=== PATIENT | female | born 1970 | race Caucasian/White ===

== ENCOUNTER 2021-05-26 15:10 | Emergency (ER) | payer MEDICAID, SELFPAY ==
[2021-05-26 15:11] VITALS: BP 140/90; PULSE 85; RESP 14; TEMP 36.6; O2SAT 98; BMI 19.8
--- NOTE | 2021-05-26 15:32 | EX.ED.SAOD ---
HPI History of Present Illness Chief Complaint: Overdose Informant: patient Onset/Context/Timing Onset: Today Current Severity: Gone Maximum Severity: Moderate Associated Symptoms Prehospital Treatment: Naloxone Narrative Narrative: 51-year-old female admits to history of fentanyl abuse. Reportedly snorted fentanyl today became unconscious. Was treated at the scene with Narcan that someone had. Did not wake her up squad was called and she was given Narcan twice and is now awake and alert. She denies any complaints. She denies any recent illness. Patient was in a detox outpatient program in [place] but got released from the program when she was not making her appointments. Prior similar symptoms: Yes Recent Illness/Hospitalization: No [facility] Medical History Opiate abuse, continuous Home Medications clonazepam 1 tab PO BID PRN PRN 02/21/16 [History Last Taken Unknown] naproxen [Naprosyn] 500 mg PO BID #14 tab 02/21/16 [Rx Last Taken Unknown] promethazine 25 mg PO PRN PRN 02/21/16 [History Last Taken Unknown] sumatriptan succinate [Imitrex] 100 mg PO .X1 PRN 02/21/16 [History Last Taken Unknown] Allergy/AdvReac Type Severity Reaction Status Date / Time No Known Allergies Allergy Verified 05/26/21 15:11 Social History Smoking Status: Never smoker ROS ROS ED ROS Narrative Denies recent illness. Review of Systems ROS Unobtainable: Denies due to encephalopathy Constitutional Constitutional ED: Denies fever(s) Eyes Eyes: Denies change in vision ENT ENT ED: Denies ear pain Cardiovascular Cardiovascular: Denies chest pain Respiratory/Chest Respiratory/Chest: Denies dyspnea Gastrointestinal Gastrointestinal: Denies abdominal pain Genitourinary Genitourinary ED: Denies dysuria Musculoskeletal Musculoskeletal: Denies myalgias Integumentary Denies rash Neurologic Neurologic: Denies headache(s) Psychiatric Psychiatric: Denies depression Endocrine Endocrinology: Denies polyuria Hematologic/Lymphatic Hematologic/Lymphatic: Denies easy bruising Allergic/Immunologic Allergic/Immunologic ED: Denies urticaria EXAM Physical Exam Narrative Exam Narrative: Middle-aged female no acute distress vital signs stable afebrile. HEENT exam unremarkable. Neck nontender no lymphadenopathy. Lungs clear to auscultation bilaterally. Heart regular rhythm no murmur. Rate about 80. Abdomen soft nontender normal bowel sounds no peritoneal signs. Extremities moves all four. Calves are nontender without edema. Equal symmetrical conventions reservationist strength. Dorsi plantar flexion intact. Neurologically awake and alert. Answering questions and following commands. Const Vital Signs: 05/26/21 15:11 Temperature 97.8 F Temperature Source Oral Pulse Rate 85 Respiratory Rate 14 Blood Pressure 140/90 H Blood Pressure Mean 106 Pulse Ox 98 Oxygen Delivery Method Room Air Positive well nourished and well developed; Negative for obese, cachectic, contractures or unkempt General Appearance ED: well developed and NAD; Negative for unkempt, cachectic, contractures or pallor Nutritional Appearance: Negative for cachectic or obese HEENT Reports moist mucous membranes atraumatic; Negative for trauma or tenderness Eyes PERRL and EOMs intact bilaterally General Eye ED: Negative for scleral icterus Neck no lymphadenopathy, supple and no JVD Thyroid: Negative for tender Lymph Lymphatic: no lymphadenopathy noted; Negative for lymphadenopathy Chest Wall inspection of chest normal and palpation of chest normal Resp normal respiratory effort and clear to auscultation bilaterally Auscultation: Negative for rales, rhonchi, wheezes or other Cardio regular rate, regular rhythm, S1 normal heart sound, S2 normal heart sound and no murmurs GI soft to palpation, non-tender, non-distended and no masses Inspection: Negative for abdominal distention Auscultation: Negative for hyperactive bowel sounds or hypoactive bowel sounds Palpation: Negative for tender, guarding or rigid Back/Spine no CVA tenderness General Back: Negative for CVA tenderness Cervical Spine: Negative for cervical spine tenderness Thoracic Spine / Upper Back: Negative for thoracic spinal tenderness Lumbar Spine / Lower Back: Negative for lumbar spinal tenderness Extremity General Extremety ED: Negative for edema or tenderness General Extremity: Negative for edema Neuro oriented x3 Sensorium / Orientation: alert, oriented to person, oriented to place and oriented to time; Negative for confused, lethargic or stuporous Motor Exam: strength 5/5 throughout Psych mental status grossly normal and thought process normal Appearance: Negative for unkempt Skin General Skin Exam: Negative for jaundice or pallor Lesions: no lesions Rashes: no rashes MDM MDM MDM Narrative Medical decision making narrative: 50-year-old female history of fentanyl abuse. Today accidentally overdosed and was treated with Narcan. She is currently awake and alert without complaints. She will be observed in the emergency department for half an hour and discharged. She is already sought treatment at [facility] and will follow-up with them this week. Discharge Plan Triage Chief Complaint: Overdose ED Provider: Daniel Paula Dx/Rx/DC Orders Clinical Impression: Accidental fentanyl overdose, Hx of drug abuse Instructions: ED Drug Abuse Prescriptions: No Action sumatriptan succinate [Imitrex] 100 MG tablet 100 mg PO .X1 PRN RF: 0 clonazepam 0.5 MG tablet 1 tab PO BID PRN PRN (Reason: Anxiety) RF: 0 promethazine 25 MG tablet 25 mg PO PRN PRN (Reason: Nausea) RF: 0 naproxen [Naprosyn] 500 MG tablet 500 mg PO BID Qty: 14 RF: 0 Primary Care Provider: Giovanni Little Referrals: Giovanni Little MD [Primary Care Provider] - [employer] [STAFF PHYSICIAN] - As soon as possible Activity Restrictions/Additional Instructions: Follow-up with the [facility] outpatient detox program. Disposition Disposition: Home, Self Care
[2021-05-26 15:47] VITALS: BP 111/86; PULSE 85; O2SAT 96
[2021-05-26] MEDS: Ondansetron ODT 4 MG Tablet PO (16:05)
[2021-05-26 16:20] VITALS: BP 118/64; PULSE 74; RESP 18; O2SAT 99
== END 2021-05-26 16:21 | disposition home or self-care (01) ==
LOC: ED 15:37
PROVIDERS: Emergency Provider Emergency Medicine; PCP Family Medicine Geriatric Medicine; Visit Provider Emergency Medicine
DX: T40.411A Poisoning by fentanyl or fentanyl analogs, accidental (unintentional), initial encounter (principal)
CPT/HCPCS: 99283

== ENCOUNTER 2022-11-07 17:06 | Observation (INO) | payer OTHER, MEDICAID, SELFPAY ==
[2022-11-07 17:07] VITALS: BP 121/87; PULSE 82; RESP 17; TEMP 36.2; O2SAT 100; BMI 21.4
--- NOTE | 2022-11-07 17:33 | EX.ED.DYSGE1 ---
HPI <PATSY Crawley - Last Filed: 11/07/22 19:04> History of Present Illness Chief Complaint: Substance Abuse Narrative Narrative: Patient presenting today requesting to detox from fentanyl. She last used this afternoon. She recently became established with the [facility] program who encouraged her to come here for detox. She reports that she uses around 1/4 of a gram per day for the last several years. She primarily snorts this, she has only injected it a handful of times in the past few years and denies any recent injection use. She also reports occasional meth use and last used meth last night. She has never tried to detox at a facility before. She denies any alcohol use. PMH includes asthma, OCD, and chronic migraines. PFSH <PATSY Crawley - Last Filed: 11/07/22 19:04> PFSH Medical History Anxiety Chronic hepatitis C virus infection Depression Opiate abuse, continuous Premature ovarian failure Home Medications clonazepam 0.5 mg tablet 1 tab PO BID PRN PRN Anxiety 02/21/16 [History Last Taken Unknown] naproxen 500 mg tablet (Naprosyn) 500 mg PO BID pain #14 tabs 02/21/16 [Rx Last Taken Unknown] promethazine 25 mg tablet 25 mg PO PRN PRN Nausea 02/21/16 [History Last Taken Unknown] sumatriptan succinate 100 mg tablet (Imitrex) 100 mg PO Q2H PRN migraine headache 02/21/16 [History Last Taken Unknown] furosemide 20 mg tablet 20 mg PO DAILY PRN swelling on feet 11/07/22 [History Last Taken Unknown] rizatriptan 10 mg tablet (Maxalt) 10 mg PO Q2H PRN migraine headache 11/07/22 [History Last Taken Unknown] Allergy/AdvReac Type Severity Reaction Status Date / Time No Known Allergies Allergy Verified 11/07/22 17:07 Family History (Updated 11/07/22 @ 18:[address] Lissa Schuster DO) Other COPD (chronic obstructive pulmonary disease) Cancer Diabetes Heart disease Hypertension Surgical History H/O oral surgery Hx of cholecystectomy Social History (Updated 11/07/22 @ 18:[address] Lissa Schuster DO) household members: family housing: apartment Smoking Status: Never smoker alcohol intake: never substance use type: amphetamines, opiates and methamphetamine ROS <PATSY Crawley - Last Filed: 11/07/22 19:04> ROS ED Constitutional Constitutional ED: Denies chills, fever(s) or sweats Eyes Eyes: Denies blurry vision or diplopia Cardiovascular Cardiovascular: Denies chest pain or palpitations Respiratory/Chest Respiratory/Chest: Denies cough or dyspnea Gastrointestinal Gastrointestinal: Denies abdominal pain, nausea or vomiting Musculoskeletal Musculoskeletal: Denies arthralgias or myalgias Integumentary Denies abscess, Abrasions or rash Neurologic Neurologic: Denies weakness Psychiatric Psychiatric: Reports anxiety EXAM <PATSY Crwaley - Last Filed: 11/07/22 19:04> Physical Exam Const Vital Signs: 11/07/22 17:07 Temperature 97.1 F L Temperature Source Temporal Pulse Rate 82 Respiratory Rate 17 Blood Pressure 121/87 H Blood Pressure Mean 98 Pulse Ox 100 Oxygen Delivery Method Room Air Positive well nourished, well developed and no apparent distress General Appearance ED: well developed HEENT Reports normocephalic and head/scalp atraumatic Mouth ED: Yes moist mucous membranes normal Eyes PERRL and EOMs intact bilaterally Neck full ROM and supple Chest Wall inspection of chest normal Resp normal respiratory effort and clear to auscultation bilaterally Cardio regular rate and regular rhythm GI soft to palpation, non-tender, non-distended and no masses Back/Spine normal ROM and normal to inspection Extremity normal to inspection and full ROM Neuro oriented x3, CN's II-XII intact bilaterally, moves all extremities, no focal motor deficits and no sensory deficits noted Sensorium / Orientation: awake and alert Psych mental status grossly normal and thought process normal Skin no rashes or lesions noted and no wounds <Angel Wallace MD - Last Filed: 11/08/22 00:23> Physical Exam Const Vital Signs: 11/07/22 17:07 Temperature 97.1 F L Temperature Source Temporal Pulse Rate 82 Respiratory Rate 17 Blood Pressure 121/87 H Blood Pressure Mean 98 Pulse Ox 100 Oxygen Delivery Method Room Air MDM <PATSY Crawley - Last Filed: 11/07/22 19:04> MDM MDM Narrative Medical decision making narrative: Patient was requesting to detox from fentanyl. She has used over the last several years and admits to intermittent meth use as well. She last used this afternoon and does not feel like she is going through withdrawals yet. She denies any recent injection use. She admits to feeling anxious. I did discuss patient with hospitalist and she will be admitted in stable condition. Labs have been obtained to rule out leukocytosis, anemia, electrolyte abnormality, KOFI. She is comfortable with plan. Lab Data Attestation: I reviewed the patient's lab results. Lab results narrative: Urine tox screen does show amphetamines, MDMA, and cocaine. Potassium 2.9. She was given replacement potassium by the hospitalist. <Angel Wallace MD - Last Filed: 11/08/22 00:23> [facility] MDM Narrative Medical decision making narrative: Patient was requesting to detox from fentanyl. She has used over the last several years and admits to intermittent meth use as well. She last used this afternoon and does not feel like she is going through withdrawals yet. She denies any recent injection use. She admits to feeling anxious. I did discuss patient with hospitalist and she will be admitted in stable condition. Labs have been obtained to rule out leukocytosis, anemia, electrolyte abnormality, KOFI. She is comfortable with plan. I have personally performed a face to face assessment of the patient and have reviewed the SHERLY Note. I performed a substantive portion of the visit including all aspects of the following. My xiong findings include: History is wants detox from fentanyl. Usually snorts fentanyl, last use today. Exam is afebrile. Vital signs noted. Regular rate and rhythm. Lungs clear to auscultation bilaterally. Abdomen soft and nontender. Ambulatory in ED. Medical Decision Making check labs. Discussed with hospitalist. Admit for detox. Disposition is admit in stable condition. Other additions or changes: [None] Discharge Plan Dx/Rx/DC Orders Clinical Impression: Desire for detoxification, Opiate abuse, continuous, Hypokalemia Disposition Disposition: Acute Care Hospital [facility] Discharge Date/Time: 11/07/22 19:13
--- NOTE | 2022-11-07 17:57 | PCM.HP.STD ---
HPI - General General Date of Admission: 11/07/22 Date of Service: 11/07/22 Chief Complaint: Opiate detox HPI Narrative LAILA HIRSCH, is a 51 F who presented to the emergency department at [facility] on 11/07/2022 requesting opiate detox. Patient states has been a longtime user/abuser of opiates. She has used intravenous drugs previously but predominantly has been using intranasally. No recent IV drug use. She states she has chronic hepatitis C. Her last use was on the morning of admission. She states she is unsure how much she uses daily but does admit to spending $30-$40 daily on fentanyl. She also intermittently uses meth as well. She currently is denying any symptoms of withdrawal. She recently became established with the [facility] recovery program who encouraged her to come in for detox. The plan is for her to be discharged to their program for 3 months and patient rehabilitation program after she is medically stabilized. She denies any tobacco abuse. Vital signs on presentation showed temperature of 97.1, blood pressure 121/87, heart rate 82, respiratory rate 17, and oxygen saturations are 100% on room air. Her CBC shows a mild erythrocytosis with a hemoglobin of 15.8 but is otherwise unremarkable. MP showed a potassium of 2.9, chloride of 108 and a calcium of 10.4 but all other electrolytes were normal. Alkaline phosphatase was elevated 174. LFTs were normal otherwise. Toxicology screen was pending. [facility] Medical History Anxiety Chronic hepatitis C virus infection Depression Opiate abuse, continuous Premature ovarian failure Home Medications clonazepam 0.5 mg tablet 1 tab PO BID PRN PRN Anxiety 02/21/16 [History Last Taken Unknown] naproxen 500 mg tablet (Naprosyn) 500 mg PO BID #14 tabs 02/21/16 [Rx Last Taken Unknown] promethazine 25 mg tablet 25 mg PO PRN PRN Nausea 02/21/16 [History Last Taken Unknown] sumatriptan succinate 100 mg tablet (Imitrex) 100 mg PO .X1 PRN 02/21/16 [History Last Taken Unknown] Allergy/AdvReac Type Severity Reaction Status Date / Time No Known Allergies Allergy Verified 11/07/22 17:07 Family History (Updated 11/07/22 @ 18:[address] Lissa Schuster DO) Other COPD (chronic obstructive pulmonary disease) Cancer Diabetes Heart disease Hypertension Surgical History H/O oral surgery Hx of cholecystectomy Social History (Updated 11/07/22 @ 18:[address] Lissa Schuster DO) household members: family housing: apartment Smoking Status: Never smoker alcohol intake: never substance use type: amphetamines, opiates and methamphetamine ROS Constitutional Constitutional: Denies anorexia, change in weight, chills, fatigue, fever(s), malaise, night sweats, weakness or other Eyes Eyes: Denies blurry vision, change in eye color, change in vision, discharge from eye(s), double vision, erythema, eye pain, loss of vision or other ENT HEENT: Denies abnormal hearing, dysphagia, ear pain, epistaxis, headache(s), hearing loss, nasal congestion, nasal discharge, post nasal drip, sinus pressure, sore throat or other Cardiovascular Cardiovascular: Denies chest pain, claudication, dyspnea on exertion, edema, lightheadedness, orthopnea, palpitations, paroxysmal nocturnal dyspnea, rapid heart rate, syncope or other Respiratory/Chest Respiratory/Chest: Denies cough, dyspnea, excessive phlegm production, hemoptysis, productive cough, shortness of breath at rest, shortness of breath with exertion, wheezing or other Gastrointestinal Gastrointestinal: Denies abdominal pain, coffee ground emesis, constipation, diarrhea, dyspepsia, hematemesis, hematochezia, loose stools, melena, nausea, vomiting or other Genitourinary Genitourinary: Denies burning urination, difficulty urinating, dysuria, hematuria, nocturia, urinary frequency, urinary hesitancy, urinary incontinence, urinary urgency or other Musculoskeletal Musculoskeletal: Denies arthralgias, back pain, joint pain, joint stiffness, joint swelling, myalgias, neck pain or other Neurologic Neurologic: Denies abnormal gait, abnormal speech, confusion, disequilibrium, dizziness, focal weakness, headache(s), numbness, paresthesias, seizure-like activity, seizures, syncope, tingling, tremor(s) or other Psychiatric Psychiatric: Reports anxiety; Denies depression, homicidal ideation, suicidal ideation or other Endocrine Endocrinology: Denies change in body appearance, cold intolerance, excessive sweating, heat intolerance, polydipsia, polyuria or other Hematologic/Lymphatic Hematologic/Lymphatic: Denies anemia, easy bleeding, easy bruising, lymphadenopathy or other Allergic/Immunologic Allergic/Immunologic: Denies rhinitis, hives, eczemia, asthma or other Vital Signs Vital Signs Vital Signs: 11/07/22 17:07 Temperature 97.1 F L Temperature Source Temporal Pulse Rate 82 Respiratory Rate 17 Blood Pressure 121/87 H Blood Pressure Mean 98 Pulse Ox 100 Oxygen Delivery Method Room Air Weight Weight: 73.663 kg Body Mass Index (BMI) 21.4 Physical Exam Const alert, oriented x3, no apparent distress, average body habitus and well nourished Constitutional Narrative: Very pleasant, middle-aged, white female, sitting up in bed, appears anxious but comfortable and nontoxic HEENT normocephalic, head/scalp atraumatic, hearing grossly normal bilaterally and moist oral mucous membranes HEENT Narrative: Dentition is fair, Mallampati is 2, no thrush Resp normal respiratory effort, no retractions, no use of accessory muscles and clear to auscultation bilaterally Auscultation: Negative for rales, rhonchi or wheezes Cardio regular rate, regular rhythm, S1 normal heart sound, S2 normal heart sound, no murmurs, no rub, no gallops and no clicks GI normal to inspection, nondistended, normoactive bowel sounds, soft to palpation and non-tender Extremity no clubbing, cyanosis or edema Extremity Narrative: Pedal pulses are 2+ Neuro oriented x3, moves all extremities and no focal motor deficits Speech: speech normal Psych Psych Narrative: Affect is slightly flat, patient seems anxious but pleasant and interacts appropriately, eye contact is fair Mood & Affect: anxious Results Lab / Micro Data Attestation: I reviewed the patient's lab results. 11/07/22 18:00 11/07/22 18:00 Assessment & Plan Assessment/Plan (1) Desire for detoxification: PLAN: Plan Opiate abuse -Patient reports she is a longtime user of opiates predominantly fentanyl -Typically snorts especially recently however does have previous IVDU -Is hepatitis C positive -Suboxone taper per [facility] protocol -Supportive medication for withdrawal symptoms -180 consultation -Current plan is for inpatient treatment for 3 months at [facility] after medical stabilization Hypokalemia Oral potassium placement with 60 mill equivalents p.o. potassium -Repeat lab in a.m. -Check a.m. magnesium level Hypercalcemia -Mild at 10.4 however alkaline phosphatase is elevated -We will repeat lab in a.m. to reassess and if remains elevated will consider GGT for further work-up Chronic hepatitis C infection -Would recommend outpatient follow-up if patient able to maintain sobriety for treatment -Increases risk for hepatocellular carcinoma -We will give patient referral to GI after discharge -Would recommend outpatient AFP and right upper quadrant ultrasound Polysubstance abuse -Patient also uses methamphetamines -Recommend cessation -Above medications for any withdrawal symptoms Premature ovarian failure -Patient underwent menopause at age 37 Asthma -As needed albuterol Chronic migraines -Continue home sumatriptan Depression/anxiety -Sounds like anxiety is her biggest issue however this could be part of her withdrawal -As needed hydroxyzine for now -We will reassess tomorrow and if patient remains anxious will recommend starting Zoloft 50 mg daily DVT prophylaxis -Low risk -Encourage early and frequent ambulation CODE STATUS -Full code Charges/Coding Visit Charges Inpatient E&M: 83332 Init Hosp L2
[2022-11-07 18:09] LABS: Absolute Lymphocyte Count 1.96 X10^3/uL (0.83-4.51); Absolute Neutrophil Count 6.4 X10^3/uL (2.0-7.7); Basophil# 0.03 X10^3/uL; Basophil% 0.3 % (0-1); Eosinophil# 0.06 X10^3/uL; Eosinophils% 0.7 % (0-5); Hematocrit 48.9 % (37-47); Hemoglobin 15.8 g/dL (12.0-15.0); Lymphocyte # 1.96 X10^3/ul (0.83-4.51); Lymphocyte % 21.4 % (19-41); Mean Corp Hgb Conc 32.3 g/dL (32-36); Mean Corpuscular Hgb 30.3 pg (27.0-32.0); Mean Corpuscular Volume 93.9 fL (81-99); Mean Platelet Vol. 9.9 fl (6.2-12.0); Monocyte# 0.62 X10^3/uL; Monocyte% 6.8 % (0-10); NRBC Flagged by Analyzer 0 % (0-5); Neutrophil # 6.44 X10^3/uL (2.7-7.7); Neutrophil % 70.5 % (47-70); Platelet Count 157 K/mm3 (150-450); RBC Distribution Width SD 45.1 fl (35.1-43.9); Red Blood Count 5.21 M/mm3 (4.2-5.4); White Blood Count 9.1 K/mm3 (4.4-11.0)
[2022-11-07 18:35] LABS: Alcohol, Blood (Medical)-Serum < 3.0 mg/dL
[2022-11-07 18:36] LABS: AST(SGOT) 37 U/L (15-37); Alanine Aminotransfer ALT/SGPT 31 U/L (13-56); Albumin, Serum 3.7 g/dL (3.2-5.0); Alkaline Phosphatase 173 U/L (45-117); Anion Gap 5 (5-15); BUN 10 mg/dL (7-18); BUN/Creat Ratio 13.4 RATIO (10-20); Bilirubin, Direct 0.18 mg/dL (0.00-0.30); Calcium,Total 10.4 mg/dL (8.5-10.1); Chloride 108 mmol/L (98-107); Creatinine, Serum 0.74 mg/dL (0.55-1.02); EST Glomerular Filtration Rate 88 mL/min (>60); Est Glom Filt Rate - Afr Amer 106 mL/min (>60); Estimated Creatinine Clearance 106.94 ml/min; Globulin 4.4 g/dL (2.2-4.2); Glucose 94 mg/dL (74-106); Potassium 2.9 mmol/L (3.5-5.1); Protein, Total 8.1 g/dL (6.4-8.2); Sodium Level 142 mmol/L (136-145)
[2022-11-07 18:51] LABS: Internal QC Validated? YES +Cl - CLEAR BKGD; Pregnancy, Urine Negative Negative
[2022-11-07 18:59] LABS: Amphetamine Urine VISTA POSITIVE (<1000 ng/mL); Barbiturate Urine VISTA NEGATIVE (< 200 ng/mL); Benzodiazepine Urine VISTA NEGATIVE (< 200 ng/mL); Cocaine Urine VISTA POSITIVE (< 300 ng/mL); Ecstacy Urine VISTA POSITIVE (< 500 ng/mL); Methadone Urine VISTA NEGATIVE (< 300 ng/mL); PCP Urine VISTA NEGATIVE (< 25 ng/mL); THC Urine VISTA NEGATIVE (< 50 ng/mL); Vista UDS pH Range 6
[2022-11-07 19:12] VITALS: BP 124/70; PULSE 66; RESP 16; TEMP 36.6
[2022-11-07 19:21] VITALS: BMI 21.2
[2022-11-07 19:43] VITALS: BP 112/77; PULSE 61; RESP 16; TEMP 36.9; O2SAT 100
[2022-11-07] MEDS: Potassium Chloride Oral Tablet 20 MEQ 60 MEQ PO (19:47)
[2022-11-08 05:01] VITALS: BP 122/60; PULSE 64; RESP 16; TEMP 36.5; O2SAT 99
[2022-11-08] MEDS: hydrOXYzine PAM 25 MG Capsule 50 MG PO ×2 (05:09→16:45)
[2022-11-08] MEDS: Acetaminophen 325 MG Tablet 650 MG PO ×2 (05:09→16:44)
[2022-11-08] MEDS: Buprenorphine HCl 2 MG TAB.SUBL SL ×3 (05:11→21:10)
[2022-11-08] MEDS: cloNIDine HCl 0.1 MG Tablet PO ×2 (06:04→16:45)
[2022-11-08] MEDS: Ondansetron 8 MG Tablet PO ×2 (06:04→16:45)
[2022-11-08 07:43] LABS: ALB/GLOB Ratio 0.8 RATIO (0.9-2.4); AST(SGOT) 40 U/L (15-37); Alanine Aminotransfer ALT/SGPT 28 U/L (13-56); Albumin, Serum 3.1 g/dL (3.2-5.0); Alkaline Phosphatase 147 U/L (45-117); Anion Gap 6 (5-15); BUN 11 mg/dL (7-18); BUN/Creat Ratio 17.4 RATIO (10-20); Calcium,Total 10.4 mg/dL (8.5-10.1); Chloride 112 mmol/L (98-107); Creatinine, Serum 0.63 mg/dL (0.55-1.02); EST Glomerular Filtration Rate 106 mL/min (>60); Est Glom Filt Rate - Afr Amer 128 mL/min (>60); Estimated Creatinine Clearance 124.15 ml/min; Glucose 103 mg/dL (74-106); Magnesium 2.4 mg/dL (1.6-2.6); Potassium 3.9 mmol/L (3.5-5.1); Protein, Total 7.1 g/dL (6.4-8.2); Sodium Level 143 mmol/L (136-145)
[2022-11-08 10:13] VITALS: BP 127/75; PULSE 67; RESP 18; TEMP 36.6; O2SAT 98
[2022-11-08] MEDS: Methocarbamol 750 MG Tablet 1500 MG PO ×2 (10:16→19:48)
--- NOTE | 2022-11-08 11:54 | ADDICTION ---
This marketing copywriter met with PT to conduct ASAM, MSE, AUDIT, DUDIT assessments and to plan for d/c. PT A+Ox4 and participated actively. All assessments completed and placed in PT's chart. PT plans to f/u with [facility] for follow-up [facility] services. [facility] will provide transportation post d/c from [facility].
--- NOTE | 2022-11-08 13:52 | PCM.PN.HOSP ---
Reason for Visit Reason for Visit: Opiate detox Subjective Subjective Patient states she is having pretty significant withdrawal symptoms at this point. Subutex has been initiated. I discussed her making sure she communicates with nursing so she gets the available as needed that she needs and she voiced understanding. She currently is complaining of some nausea and vomiting, chills and shivering, and anxiety. Denies any diarrhea. Piloerection noted on exam. Objective Data Objective Data Vital Signs: Vital Signs Temp Pulse Resp BP Pulse Ox O2 Del Method 98 F 67 18 127/75 H 98 Room Air 11/08/22 10:13 11/08/22 10:13 11/08/22 10:13 11/08/22 10:13 11/08/22 10:13 11/08/22 10:13 Oxygen Delivery Method Room Air Weight: 72.802 kg Body Mass Index (BMI) 21.2 Lab / Micro Data 11/07/22 18:00 11/08/22 05:55 Labs: Laboratory Results - last 24 hr 11/07/22 18:00: WBC 9.1, RBC 5.21, Hgb 15.8 H, Hct 48.9 H, MCV 93.9, MCH 30.3, MCHC 32.3, RDW Std Deviation 45.1 H, RDW Coeff of Melisa 13.0, Plt Count 157, MPV 9.9, Immature Gran % (Auto) 0.300, Neut % (Auto) 70.5 H, Lymph % (Auto) 21.4, [place] % (Auto) 6.8, Eos % (Auto) 0.7, Baso % (Auto) 0.3, Absolute Neuts (auto) 6.4, Absolute Lymphs (auto) 1.96, Nucleated RBC % 0, Sodium 142, Potassium 2.9 L, Chloride 108 H, Carbon Dioxide 29.0, Anion Gap 5, BUN 10, Creatinine 0.74, Estim Creat Clear Calc 106.94, Est GFR (MDRD) Af Amer 106, Est GFR (MDRD) Non-Af 88, BUN/Creatinine Ratio 13.4, Glucose 94, Calcium 10.4 H, Total Bilirubin 0.60, Direct Bilirubin 0.18, AST 37, ALT 31, Alkaline Phosphatase 173 H, Total Protein 8.1, Albumin 3.7, Globulin 4.4 H, Ethyl Alcohol < 3.0 11/07/22 18:34: Urine Test Negative, Urine Opiates Screen NEGATIVE, Urine Methadone Screen NEGATIVE, Ur Barbiturates Screen NEGATIVE, Ur Phencyclidine Scrn NEGATIVE, Ur Amphetamines Screen POSITIVE H, MDMA (Ecstasy) Screen POSITIVE H, U Benzodiazepines Scrn NEGATIVE, Urine Cocaine Screen POSITIVE H, U Cannabinoids Screen NEGATIVE, Ur Drug Screen Comment 11/08/22 05:55: Sodium 143, Potassium 3.9, Chloride 112 H, Carbon Dioxide 25.0, Anion Gap 6, BUN 11, Creatinine 0.63, Estim Creat Clear Calc 124.15, Est GFR (MDRD) Af Amer 128, Est GFR (MDRD) Non-Af 106, BUN/Creatinine Ratio 17.4, Glucose 103, Calcium 10.4 H, Magnesium 2.4, Total Bilirubin 0.60, AST 40 H, ALT 28, Alkaline Phosphatase 147 H, Total Protein 7.1, Albumin 3.1 L, Globulin 4.0, Albumin/Globulin Ratio 0.8 L Physical Exam Const alert, oriented x3, no apparent distress, average body habitus and well nourished Constitutional Narrative: Very pleasant, middle-aged, white female, lying in bed under multiple covers, appears somewhat uncomfortable but nontoxic HEENT normocephalic, head/scalp atraumatic, hearing grossly normal bilaterally and moist oral mucous membranes HEENT Narrative: Dentition is fair for age, Mallampati is 2, no thrush Resp normal respiratory effort, no retractions, no use of accessory muscles and clear to auscultation bilaterally Auscultation: Negative for rales, rhonchi or wheezes Cardio regular rate, regular rhythm, S1 normal heart sound, S2 normal heart sound, no murmurs, no rub, no gallops and no clicks GI normal to inspection, nondistended, normoactive bowel sounds, soft to palpation and non-tender Extremity no clubbing, cyanosis or edema Extremity Narrative: Pedal pulses are 2+ Neuro oriented x3, moves all extremities and no focal motor deficits Speech: speech normal Psych Psych Narrative: Does appear somewhat depressed, Affect remains flat, patient appears significantly less anxious today Assessment & Plan Assessment/Plan (1) Desire for detoxification: PLAN: Plan Opiate abuse -Patient reports she is a longtime user of opiates predominantly fentanyl -Typically snorts especially recently however does have previous IVDU -Is hepatitis C positive -Subutex taper per [facility] protocol--> Subutex has been initiated with a stop date of 11/11/2022 at 5 AM -Supportive medication for withdrawal symptoms -180 consultation -Current plan is for inpatient treatment for 3 months at [facility] after medical stabilization -Anticipate discharge likely on Friday Hypokalemia -Resolved Hypercalcemia -Both alk phos and calcium are slightly elevated -Check GGT Chronic hepatitis C infection -Would recommend outpatient follow-up if patient able to maintain sobriety for treatment -Increases risk for hepatocellular carcinoma -We will give patient referral to GI after discharge -Would recommend outpatient AFP and right upper quadrant ultrasound Polysubstance abuse -Patient also uses methamphetamines -Recommend cessation -Above medications for any withdrawal symptoms Premature ovarian failure -Patient underwent menopause at age 37 Asthma -As needed albuterol Chronic migraines -Continue home sumatriptan Depression/anxiety -Sounds like anxiety is her biggest issue however this could be part of her withdrawal -As needed hydroxyzine for now -Discussed initiation of Zoloft or another antidepressant/anxiolytic and patient was not interested in that this time DVT prophylaxis -Low risk -Encourage early and frequent ambulation CODE STATUS -Full code Charges/Coding Visit Charges Inpatient E&M: 58834 Subs Hosp L2
[2022-11-08 14:28] LABS: GGTP 17 U/L (5-55)
[2022-11-08 16:38] VITALS: BP 117/81; PULSE 71; RESP 18; TEMP 36.9; O2SAT 98
[2022-11-08] MEDS: Gabapentin 300 MG Capsule PO (19:48)
[2022-11-08 21:04] VITALS: BP 108/61; PULSE 61; RESP 16; TEMP 36.6; O2SAT 98
[2022-11-09 05:00] VITALS: BP 118/79; PULSE 71; RESP 16; TEMP 36.6; O2SAT 97
[2022-11-09] MEDS: Buprenorphine HCl 2 MG TAB.SUBL SL ×3 (05:19→21:07)
[2022-11-09] MEDS: hydrOXYzine PAM 25 MG Capsule 50 MG PO ×2 (05:27→13:56)
[2022-11-09 08:52] VITALS: BP 132/84; PULSE 76; RESP 18; TEMP 36.9; O2SAT 97
[2022-11-09] MEDS: cloNIDine HCl 0.1 MG Tablet PO (08:59)
[2022-11-09] MEDS: Acetaminophen 325 MG Tablet 650 MG PO ×2 (08:59→18:10)
[2022-11-09] MEDS: Methocarbamol 750 MG Tablet 1500 MG PO ×2 (08:59→18:10)
--- NOTE | 2022-11-09 12:37 | PCM.PN.HOSP ---
Reason for Visit Reason for Visit: Opiate detox Subjective Subjective Patient states she is feeling some better today but still feeling pretty rough. Still complaining of body aches and shivering. Nausea vomiting has resolved. No diarrhea. Objective Data Objective Data Vital Signs: Vital Signs Temp Pulse Resp BP Pulse Ox O2 Del Method 98.5 F 76 18 132/84 H 97 Room Air 11/09/22 08:52 11/09/22 08:52 11/09/22 08:52 11/09/22 08:52 11/09/22 08:52 11/09/22 08:52 Oxygen Delivery Method Room Air Weight: 72.802 kg Body Mass Index (BMI) 21.2 Intake & Output: Intake and Output for Last 24 Hours 11/07/22 11/08/22 11/09/22 23:59 23:59 23:59 Intake Total 650 / 650 Balance 650 / 650 Lab / Micro Data 11/07/22 18:00 11/08/22 05:55 Labs: Laboratory Results - last 24 hr 11/08/22 05:55: GGT 17 Physical Exam Const alert, oriented x3, no apparent distress, average body habitus and well nourished Constitutional Narrative: Middle-aged white female lying in bed under multiple covers, appears comfortable currently but does not look like she is feeling well, nontoxic HEENT head/scalp atraumatic and moist oral mucous membranes HEENT Narrative: Mallampati 2-3, no thrush Head and Scalp: normocephalic Neuro oriented x3, moves all extremities and no focal motor deficits Speech: speech normal Psych Psych Narrative: Affect is flat Assessment & Plan Assessment/Plan (1) Opiate abuse, continuous: (2) Desire for detoxification: (3) Hypercalcemia: PLAN: Plan Opiate abuse -Patient reports she is a longtime user of opiates predominantly fentanyl -Typically snorts especially recently however does have previous IVDU -Is hepatitis C positive -Subutex taper per [facility] protocol--> Subutex was initiated with a stop date of 11/11/2022 at 5 AM -Supportive medication for withdrawal symptoms -180 following -Current plan is for inpatient treatment for 3 months at [facility] after medical stabilization -Will need to call them at discharge for transportation -Anticipate discharge likely on Friday Hypercalcemia -Alk phos elevation is likely not biliary -Recheck calcium in a.m. and if remains elevated will start HCTZ 12.5 mg daily -Check vitamin D level -GGT is normal Chronic hepatitis C infection -Would recommend outpatient follow-up if patient able to maintain sobriety for treatment -Increases risk for hepatocellular carcinoma -We will give patient referral to GI after discharge -Would recommend outpatient AFP and right upper quadrant ultrasound Polysubstance abuse -Patient also uses methamphetamines -Recommend cessation -Above medications for any withdrawal symptoms Premature ovarian failure -Patient underwent menopause at age 37 Asthma -As needed albuterol Chronic migraines -Continue home sumatriptan Depression/anxiety -Sounds like anxiety is her biggest issue however this could be part of her withdrawal -As needed hydroxyzine for now -Discussed initiation of Zoloft or another antidepressant/anxiolytic and patient was not interested in that this time DVT prophylaxis -Low risk -Encourage early and frequent ambulation CODE STATUS -Full code Charges/Coding Visit Charges Inpatient E&M: 06239 Subs Hosp L1
[2022-11-09 13:52] VITALS: BP 101/64; PULSE 61; RESP 18; TEMP 37.1; O2SAT 97
[2022-11-09] MEDS: Ondansetron 8 MG Tablet PO (13:56)
[2022-11-09 21:02] VITALS: BP 106/69; PULSE 75; RESP 17; TEMP 36.6; O2SAT 100
[2022-11-09] MEDS: Gabapentin 300 MG Capsule PO (21:07)
[2022-11-09] MEDS: traZODone 100 MG Tablet PO (21:07)
[2022-11-10] MEDS: Buprenorphine HCl 2 MG TAB.SUBL SL ×2 (04:42→16:59)
[2022-11-10] MEDS: Rizatriptan Benzoate 10 MG Tablet PO ×2 (04:49→11:32)
[2022-11-10] MEDS: Ondansetron 8 MG Tablet PO ×2 (04:49→20:53)
[2022-11-10 04:56] VITALS: BP 116/76; PULSE 80; RESP 17; TEMP 36.4; O2SAT 98
[2022-11-10 07:57] LABS: Calcium,Total 10.5 mg/dL (8.5-10.1)
[2022-11-10 10:22] VITALS: BP 99/63; PULSE 65; RESP 18; TEMP 36.8; O2SAT 97
[2022-11-10] MEDS: Methocarbamol 750 MG Tablet 1500 MG PO ×2 (10:30→17:02)
[2022-11-10] MEDS: Acetaminophen 325 MG Tablet 650 MG PO ×2 (10:30→20:57)
--- NOTE | 2022-11-10 12:18 | PN.HOSP_ITS ---
Reason for Visit Reason for Visit: Opiate detox Subjective Subjective Patient with some nausea today again. States her shivering is better but still present, not as cold. No diarrhea. Does complain of myalgias and feels like she still is going through withdrawal. I did discuss with her extending her Subutex taper some. Her last dose was post to be today so add another 24 hours of the every 12 hour dosing. Objective Data Objective Data Vital Signs: Vital Signs Temp Pulse Resp BP Pulse Ox O2 Del Method 98.2 F 65 18 99/63 97 Room Air 11/10/22 10:22 11/10/22 10:22 11/10/22 10:22 11/10/22 10:22 11/10/22 10:22 11/10/22 10:22 Oxygen Delivery Method Room Air Weight: 72.802 kg Body Mass Index (BMI) 21.2 Intake & Output: Intake and Output for Last 24 Hours 11/08/22 11/09/22 11/10/22 23:59 23:59 23:59 Intake Total 650 / 650 Balance 650 / 650 Lab / Micro Data 11/07/22 18:00 11/08/22 05:55 Labs: Laboratory Results - last 24 hr 11/10/22 05:55: Calcium 10.5 H Physical Exam Const alert, oriented x3, no apparent distress, average body habitus and well nourished Constitutional Narrative: Middle-aged white female lying in bed under multiple covers, however there are less covers today, appears comfortable currently still looks like she is not feeling well, nontoxic HEENT normocephalic, head/scalp atraumatic, hearing grossly normal bilaterally and moist oral mucous membranes HEENT Narrative: Dentition is fair, Mallampati is 2 Resp normal respiratory effort, no retractions, no use of accessory muscles and clear to auscultation bilaterally Auscultation: Negative for rales, rhonchi or wheezes Cardio regular rate, regular rhythm, S1 normal heart sound, S2 normal heart sound, no murmurs, no rub, no gallops and no clicks GI normal to inspection, nondistended, normoactive bowel sounds, soft to palpation and non-tender Extremity no clubbing, cyanosis or edema Extremity Narrative: Pedal pulses are 2+ Neuro oriented x3, moves all extremities and no focal motor deficits Speech: speech normal Psych Psych Narrative: Affect is flat, mood seems depressed, no significant anxiety noted today Assessment & Plan Assessment/Plan (1) Opiate abuse, continuous: (2) Desire for detoxification: (3) Hypercalcemia: PLAN: Plan Opiate abuse -Patient reports she is a longtime user of opiates predominantly fentanyl -Typically snorts especially recently however does have previous IVDU -Is hepatitis C positive -Subutex taper per [facility] protocol--> Subutex was prolonged with another 2 mg acute 12 hours as patient is still symptomatic with withdrawal symptoms -Supportive medication for withdrawal symptoms -180 following -Current plan is for inpatient treatment for 3 months at [facility] after medical stabilization -Will need to call them at discharge for transportation -Anticipate discharge likely on Friday Hypercalcemia -Alk phos elevation is likely not biliary -Calcium is elevated -Vitamin D level and intact PTH are pending -GGT is normal -We will need to discuss further with patient once causes identified and treatment is clear Chronic hepatitis C infection -Would recommend outpatient follow-up if patient able to maintain sobriety for treatment -Increases risk for hepatocellular carcinoma -We will give patient referral to GI after discharge -Would recommend outpatient AFP and right upper quadrant ultrasound Polysubstance abuse -Patient also uses methamphetamines -Recommend cessation -Above medications for any withdrawal symptoms Premature ovarian failure -Patient underwent menopause at age 37 Asthma -As needed albuterol Chronic migraines -Continue home sumatriptan Depression/anxiety -Sounds like anxiety is her biggest issue however this could be part of her wit hdrawal -As needed hydroxyzine for now -I really think she would benefit from an SSRI however I discussed initiation of Zoloft or another antidepressant/anxiolytic and patient was not interested in th at this time DVT prophylaxis -Low risk -Encourage early and frequent ambulation CODE STATUS -Full code Charges/Coding Visit Charges Inpatient E&M: 70999 Subs Hosp L2
--- NOTE | 2022-11-10 13:53 | NURSING ---
this nurse in to talk with patient and relay a message with Dr. Schuster that she had talked with pharmacist and is unable to extend taper of subutex. explained when next/ last dose would be, Dr. Schuster would keep overnight, and discharged to f/u facility as already arranged. Pt verbalized understanding and agreement. Thermasat adjusted as pt requested, denied all further needs, and call light within reach.
[2022-11-10 14:17] VITALS: BP 109/76; PULSE 67; RESP 18; TEMP 36.5; O2SAT 96
[2022-11-10] MEDS: hydrOXYzine PAM 25 MG Capsule 50 MG PO ×2 (14:20→20:53)
[2022-11-10 20:00] VITALS: BP 105/77; PULSE 75; RESP 18; TEMP 37; O2SAT 98
[2022-11-11 06:44] VITALS: BP 130/84; PULSE 65; RESP 16; TEMP 36.6; O2SAT 99
[2022-11-11 08:44] LABS: Vitamin D,25 Hydroxy 33.4 ng/mL
--- NOTE | 2022-11-11 10:01 | DCINST_ITS ---
Discharge Instructions Diet Discharge Diet: No restrictions Activity Discharge Activity: Return to Normal Activity Follow Up Care Test Results: Test results from this visit will be discussed in further detail at your follow- up appointment, if applicable. Discharge Plan Admission Admit Date/Time: 11/07/22 17:52 Primary Reason for Your Visit: opiate withdrawal Attending Provider: Lowell Maynard Primary Care Provider: Jason Herman Consulting Providers: Lissa Schuster Instructions Additional Instructions / Restrictions: Please follow up with [facility]. Also, you calcium level was elevated. It has been elevated in the past (2014). It is unclear why it is elevated. Please follow up with your primary care physician to continue to monitor this and see if any additional work up would be necessary. Discharge Orders/Prescriptions Prescriptions: Continued sumatriptan succinate [Imitrex] 100 MG tablet 100 mg PO Q2H PRN (Reason: migraine headache) Discontinued clonazepam 0.5 MG tablet 1 tab PO BID PRN PRN (Reason: Anxiety) Patient Comments: take 1 tablet by mouth twice a day promethazine 25 MG tablet 25 mg PO PRN PRN (Reason: Nausea) naproxen [Naprosyn] 500 MG tablet 500 mg PO BID Qty: 14 0RF rizatriptan [Maxalt] 10 mg tablet 10 mg PO Q2H PRN (Reason: migraine headache) Rx Instructions: do not exceed 3 doses per 24 hrs furosemide 20 mg tablet 20 mg PO DAILY PRN Patient Comments: take 1 tablet by mouth once daily if needed for SWELLING for up to 20 DAYS Referrals / Follow Up: Jason Herman MD [Primary Care Provider] - Within 2 Weeks Disposition Disposition (needs filled in before D/C Order can be placed): Home, Self Care
--- NOTE | 2022-11-11 10:05 | PCM.DC.SUM ---
Providers Date of Admission: 11/07/22 Primary Care Physician: Dr. Jason Herman MD Reason For Visit: OPIATE DETOX Diagnosis Discharge Diagnosis (1) Opiate abuse, continuous: Status: Acute Code(s): F11.10 - Opioid abuse, uncomplicated (2) Desire for detoxification: Status: Acute (3) Hypercalcemia: Status: Acute Code(s): E83.52 - Hypercalcemia Medications at Discharge Home Medications sumatriptan succinate 100 mg tablet (Imitrex) 100 mg PO Q2H PRN migraine headache 02/21/16 Hospital Course Operations None Procedures None Summary of Care Provided Minutes Spent on Discharge: 28 Hospital Course: A 51-year-old female presents for opiate withdrawal. Patient was on buprenorphine taper. Incidentally, patient was noted to be hypercalcemic with a potassium greater than 10. Patient's 25-hydroxy vitamin D level was within normal limits, a parathyroid hormone was ordered but is still pending at the time of this dictation. Review of her medications does not show any obvious culprits that would have contributed to this being iatrogenic. Is unclear why her calcium is elevated. Of note, patient's calcium was elevated when she had some lab work done in 2014. Patient will need to follow-up with her primary care physician in regards to having that further followed up. Patient will be following up with the program [facility] to help maintain sobriety. Physical Exam Const alert and no apparent distress HEENT normocephalic and head/scalp atraumatic Psych affect normal Weight / BMI Weight Weight: 72.802 kg Body Mass Index (BMI) 21.2 ABG / Lab / Microbiology Data 11/07/22 18:00 11/08/22 05:55 Laboratory: Laboratory Results - last 24 hr 11/07/22 18:00: Vitamin D 25-Hydroxy 33.4 D/C Instructions Discharge Diet: No restrictions Meaningful Use Info Meaningful Use Diagnoses (Choose all that apply): None applicable Discharge Plan Admission Admit Date/Time: 11/07/22 17:52 Primary Reason for Your Visit: opiate withdrawal Attending Provider: Lowell Maynard Primary Care Provider: Jason Herman Consulting Providers: Lissa Schuster Instructions Additional Instructions / Restrictions: Please follow up with [facility]. Also, you calcium level was elevated. It has been elevated in the past (2014). It is unclear why it is elevated. Please follow up with your primary care physician to continue to monitor this and see if any additional work up would be necessary. Discharge Orders/Prescriptions Prescriptions: Continued sumatriptan succinate [Imitrex] 100 MG tablet 100 mg PO Q2H PRN (Reason: migraine headache) Discontinued clonazepam 0.5 MG tablet 1 tab PO BID PRN PRN (Reason: Anxiety) Patient Comments: take 1 tablet by mouth twice a day promethazine 25 MG tablet 25 mg PO PRN PRN (Reason: Nausea) naproxen [Naprosyn] 500 MG tablet 500 mg PO BID Qty: 14 0RF rizatriptan [Maxalt] 10 mg tablet 10 mg PO Q2H PRN (Reason: migraine headache) Rx Instructions: do not exceed 3 doses per 24 hrs furosemide 20 mg tablet 20 mg PO DAILY PRN Patient Comments: take 1 tablet by mouth once daily if needed for SWELLING for up to 20 DAYS Referrals / Follow Up: Jason Herman MD [Primary Care Provider] - Within 2 Weeks Disposition Disposition (needs filled in before D/C Order can be placed): Home, Self Care Charges/Coding Visit Charges Inpatient E&M: 77617 Disch Hosp
[2022-11-11] MEDS: Ondansetron 8 MG Tablet PO (10:30)
[2022-11-11] MEDS: hydrOXYzine PAM 25 MG Capsule 50 MG PO (10:30)
[2022-11-11 10:42] LABS: PTHIN 63.6 pg/mL (18.4-80.1)
--- NOTE | 2022-11-11 10:50 | PHA.DC.MR.R ---
Pharmacy [place] Med Reconciliation Pharmacy Service has performed discharge medication reconciliation for this patient. The patient's discharge medication list was reviewed for discrepancies and discrepancies were resolved. Medications at Discharge Home Medications sumatriptan succinate 100 mg tablet (Imitrex) 100 mg PO Q2H PRN migraine headache 02/21/16
--- NOTE | 2022-11-11 10:54 | ADDICTION ---
Pt changed her mind and decided that she wanted to do inpatient treatment instead of [facility]. She reported that they seemed a little culty. clinician set her up with a screen for 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
== END 2022-11-11 12:40 | disposition home or self-care (01) ==
LOC: ED 17:41 → MS3 19:04
PROVIDERS: Physician Assistant; Admitting Provider Internal Medicine; Emergency Provider Emergency Medicine; PCP Family Medicine
DX: F11.13 Opioid abuse with withdrawal (principal); F15.10 Other stimulant abuse, uncomplicated; B18.2 Chronic viral hepatitis C; E87.6 Hypokalemia; E83.52 Hypercalcemia; F41.9 Anxiety disorder, unspecified; J45.909 Unspecified asthma, uncomplicated; G43.709 Chronic migraine without aura, not intractable, without status migrainosus; F32.A Depression, unspecified; Z79.899 Other long term (current) drug therapy
CPT/HCPCS: 36415; 80048; 80053; 80076; 80307; 81025; 82077; 82306; 82310; 82977; 83735; 83970; 85025; 99283; H0012